=== PATIENT | male | born 1965 | race Two or more races ===

== ENCOUNTER 2024-03-05 16:18 | Inpatient (IN) | payer BC, MEDICAID ==
[~2024-03-05] VITALS: Ht 182.9 cm; Wt 124.0 kg
[2024-03-05 16:51] LABS: BASOPHILS % (AUTO) 0.5 % (0-1); EOSINOPHILS # (AUTO) 0.1 X10'3 (0-0.9); EOSINOPHILS % (AUTO) 1.1 % (0-6); HEMATOCRIT 32.7 % (42.0-52.0); HEMOGLOBIN 10.7 g/dl (14.0-17.9); LYMPHOCYTES # (AUTO) 0.9 X10'3 (1.1-4.8); LYMPHOCYTES % (AUTO) 14.1 % (21-51); MEAN CORPUSCULAR HEMOGLOBIN 31.1 PG (27.0-31.0); MEAN CORPUSCULAR HGB CONC 32.7 g/dL (33.0-36.5); MEAN PLATELET VOLUME 8.4 FL (7.4-10.4); MONOCYTES # (AUTO) 0.6 X10'3 (0-0.9); MONOCYTES % (AUTO) 10.3 % (2-12); NEUTROPHILS # (AUTO) 4.7 X10'3 (1.8-7.7); PLATELET COUNT 87 X10'3 (140-440); RED BLOOD COUNT 3.44 X10'6 (4.70-6.10); RED CELL DISTRIBUTION WIDTH 16.7 % (11.5-14.5); WHITE BLOOD COUNT 6.3 X10'3 (4.5-11.0)
[2024-03-05 17:02] LABS: ALBUMIN 2.3 G/DL (3.4-5.0); ALKALINE PHOSPHATASE 232 IU/L (46-116); ASPARTATE AMINO TRANSFERASE 58 U/L (10-37); BILIRUBIN,TOTAL 1.3 MG/DL (0.1-1.0); BLOOD UREA NITROGEN 31 MG/DL (7-18); BUN/CREATININE RATIO 28.2 (10.0-20.0); CHLORIDE 116 MMOL/L (99-107); POTASSIUM 4.7 MMOL/L (3.5-5.1); SODIUM 143 MMOL/L (135-145); eCRCL 78 ML/MIN; eGFR 68 ML/MIN
[2024-03-05 17:09] LABS: PRO BRAIN NATRIURETIC PEPTIDE 2032 PG/ML (0-125)
[2024-03-05 17:25] LABS: ALANINE AMINOTRANSFERASE 32 U/L (12-78); ALBUMIN/GLOBULIN RATIO 0.4 (1.1-1.5); ANION GAP 10 (8-16); CALCIUM 8.7 MG/DL (8.5-10.1); GLUCOSE 135 MG/DL (70-104); TOTAL CARBON DIOXIDE 16.7 MMOL/L (24-32); TOTAL PROTEIN 7.5 G/DL (6.4-8.2)
[2024-03-05] MEDS: normal saline 1000ml 1,000 ML IV SCH (17:54)
[2024-03-05 18:18] LABS: APTT 31 SECONDS (22-32); INR 1.2 INR; PROTHROMBIN TIME 12.2 SECONDS (9.0-12.0)
[2024-03-05] MEDS ORDERED: magnesium sulf-water 4G/100mL 100 ML IV PRN (20:35)
[2024-03-05] MEDS ORDERED: magnesium Cl slow-release 64mg tablet PO PRN (20:35)
[2024-03-05] MEDS ORDERED: magnesium sulf-water 2g/50mL 50 ML IV PRN (20:35)
[2024-03-05] MEDS ORDERED: potassium Cl 40MEQ/1/2NS 520ml 520 ML IV PRN (20:35)
[2024-03-05] MEDS ORDERED: potassium Cl 20 mEq SR tablet PO PRN ×2 (20:35)
[2024-03-05] MEDS ORDERED: acetaminophen 325mg tablet PO PRN (20:35)
[2024-03-05] MEDS ORDERED: ondansetron/PF 4mg/2ml inj IV PRN (20:35)
[2024-03-05] MEDS ORDERED: ipratropium/albuterol 3ml nebule NEB PRN (20:50)
[2024-03-05] MEDS ORDERED: normal saline 1000ml 1,000 ML IV SCH (20:55)
[2024-03-05] MEDS ORDERED: dextrose 50%-water 50ml dispensing syringe IV PRN ×2 (21:00)
[2024-03-05] MEDS ORDERED: glucagon, human recombinant 1mg kit SUBCUT PRN (21:00)
[2024-03-05] MEDS: INSULIN LISPRO 100 UNIT/ML INSULN.PEN MULTI-DOSE SQ SCH (21:00)
[2024-03-05] MEDS ORDERED: DEXTROSE 15 GM of carb/4 tabs (each vial/BOTTLE has 4 tablets) PO PRN ×2 (21:00)
[2024-03-05 21:16] VITALS: PULSE 95; RESP 18; O2SAT 98
[2024-03-05 21:37] LABS: % IRON SATURATION 22 % (11-46); IRON 67 UG/DL (53-167); TOTAL IRON BINDING CAPACITY 301 UG/DL (259-388)
[2024-03-05 21:44] LABS: HEMOGLOBIN A1C 5.2 % (4.5-6.2)
[2024-03-05 21:51] LABS: CHOL/HDL RATIO 3.4 (0.00-4.99); CHOLESTEROL 136 MG/DL (0-200); HDL CHOLESTEROL 40 MG/DL (35-60); LDL CHOLESTEROL 69 MG/DL (50-100); TRIGLYCERIDES 98 MG/DL (20-135)
[2024-03-05 22:41] VITALS: BP 143/68; PULSE 93; RESP 22; TEMP 97.2; O2SAT 97
[2024-03-05] MEDS ORDERED: GABA-1555 PO (23:30)
[2024-03-05] MEDS ORDERED: LISI40TA13 PO (23:30)
[2024-03-05] MEDS ORDERED: ATOR20TA66 PO (23:30)
[2024-03-05] MEDS ORDERED: ALLO100T PO (23:30)
[2024-03-05] MEDS ORDERED: AMLO5TAB16 PO (23:30)
[2024-03-05 23:56] VITALS: RESP 22; O2SAT 98
[2024-03-06] MEDS ORDERED: metroNIDAZOLE-Flagyl 500mg/NS 100 ML IV SCH
[2024-03-06 02:00] VITALS: BP 139/76; PULSE 98; RESP 25; TEMP 97.8; O2SAT 96
[2024-03-06] MEDS: CefTRIAXone/D5W-Rocephin 1gm 50 ML IV SCH (02:06)
[2024-03-06 06:26] LABS: BASOPHILS % (AUTO) 0.5 % (0-1); EOSINOPHILS # (AUTO) 0.2 X10'3 (0-0.9); EOSINOPHILS % (AUTO) 3.2 % (0-6); HEMATOCRIT 32.5 % (42.0-52.0); HEMOGLOBIN 10.4 g/dl (14.0-17.9); LYMPHOCYTES # (AUTO) 1.3 X10'3 (1.1-4.8); LYMPHOCYTES % (AUTO) 19.6 % (21-51); MEAN CORPUSCULAR HGB CONC 32.1 g/dL (33.0-36.5); MEAN CORPUSCULAR VOLUME 96.5 FL (78-98); MEAN PLATELET VOLUME 8.6 FL (7.4-10.4); MONOCYTES # (AUTO) 0.7 X10'3 (0-0.9); MONOCYTES % (AUTO) 10.1 % (2-12); NEUTROPHILS # (AUTO) 4.3 X10'3 (1.8-7.7); NEUTROPHILS % (AUTO) 66.6 % (42-75); PLATELET COUNT 84 X10'3 (140-440); RED BLOOD COUNT 3.36 X10'6 (4.70-6.10); RED CELL DISTRIBUTION WIDTH 17.3 % (11.5-14.5); WHITE BLOOD COUNT 6.5 X10'3 (4.5-11.0)
[2024-03-06] MEDS: heparin, porcine 5000 units/ml vial SQ SCH (06:32)
[2024-03-06 06:47] LABS: ALANINE AMINOTRANSFERASE 34 U/L (12-78); ALBUMIN 2.3 G/DL (3.4-5.0); ALBUMIN/GLOBULIN RATIO 0.4 (1.1-1.5); ALKALINE PHOSPHATASE 226 IU/L (46-116); ANION GAP 11 (8-16); ASPARTATE AMINO TRANSFERASE 67 U/L (10-37); BLOOD UREA NITROGEN 30 MG/DL (7-18); BUN/CREATININE RATIO 26.5 (10.0-20.0); CALCIUM 8.6 MG/DL (8.5-10.1); CHLORIDE 117 MMOL/L (99-107); CREATININE 1.13 MG/DL (0.60-1.10); ETHANOL < 10 MG/DL (<10); GLUCOSE 117 MG/DL (70-104); MAGNESIUM 1.8 MG/DL (1.5-2.4); PHOSPHORUS 3.4 MG/DL (2.3-4.5); POTASSIUM 4.6 MMOL/L (3.5-5.1); SODIUM 145 MMOL/L (135-145); TOTAL CARBON DIOXIDE 16.6 MMOL/L (24-32); TOTAL PROTEIN 7.5 G/DL (6.4-8.2); eCRCL 76 ML/MIN; eGFR 66 ML/MIN
[2024-03-06 07:00] VITALS: BP 136/47; PULSE 64; RESP 18; TEMP 96.7; O2SAT 97
[2024-03-06] MEDS: K and/or MAG REPLACEMENT MC SCH (07:01)
[2024-03-06] MEDS: pantoprazole 40 MG vial IV SCH (07:12)
[2024-03-06] MEDS ORDERED: docusate sod 100mg capsule PO SCH (08:00)
[2024-03-06 08:10] LABS: C DIFF SPECIMEN=DIARRHEA? ACCEPTABLE; C DIFFICILE TOXINS A&B NEGATIVE (Neg)
[2024-03-06 08:11] LABS: C DIFF ANTIGEN NEGATIVE (NEGATIVE)
[2024-03-06 08:26] LABS: BILIRUBIN,URINE SMALL (Neg); CLARITY,URINE SLIGHTLY CLOUDY (Clear); GLUCOSE, URINE NEGATIVE (Neg); KETONES,URINE TRACE mg/dl (Neg); LEUKOCYTE ESTERASE ,URINE NEGATIVE (Neg); NITRITES, URINE NEGATIVE (Neg); OCCULT BLOOD,URINE LARGE (Neg); PROTEIN,URINE >=300 mg/dl (Neg)
[2024-03-06 08:32] LABS: COLOR,URINE DARK YELLOW (Yellow); UA COLLECTION TYPE NON-SPECIFIED
[2024-03-06 08:35] LABS: AMORPHOUS URATES 3+; BACTERIA,URINE 2+ /HPF (Neg); FINE GRANULAR CAST 0-3 /LPF (NEGATIVE); MUCUS STRANDS FEW /LPF (Neg); SQUAMOUS EPITHELIAL CELL,UR FEW /LPF (FEW); TRANSITIONAL EPI CELLS,URINE FEW /HPF
[2024-03-06 08:50] LABS: URINE AMPHETAMINE SCREEN NEGATIVE (Neg); URINE BARBITUATE SCREEN NEGATIVE (Neg); URINE BENZODIAZEPINES SCREEN NEGATIVE (Neg); URINE CANNABINOID SCREEN NEGATIVE (Neg); URINE COCAINE SCREEN NEGATIVE (Neg); URINE METHADONE SCREEN NEGATIVE (Neg); URINE OPIATE SCREEN NEGATIVE (Neg); URINE PHENCYCLIDINE SCREEN NEGATIVE (Neg)
[2024-03-06] MEDS: lactulose 20gm/30ml cup PO SCH (10:15)
[2024-03-06] MEDS: sodium bicarbonate (8.4%) inj. 100 MEQ in dextrose 5%-water 1,000 ML IV SCH (10:42)
[2024-03-06 11:00] VITALS: BP 146/75; PULSE 85; RESP 15; TEMP 98; O2SAT 98
[2024-03-06] MEDS: loperamide 2mg capsule PO ONE (11:19)
[2024-03-06 18:00] VITALS: BP 146/79; PULSE 89; RESP 16; TEMP 98.2; O2SAT 94
[2024-03-06 22:00] VITALS: BP 152/75; PULSE 96; RESP 18; TEMP 97.3; O2SAT 97
[2024-03-07 02:00] VITALS: BP 157/75; PULSE 89; RESP 22; TEMP 97.9; O2SAT 96
[2024-03-07 06:00] VITALS: BP 159/77; PULSE 87; RESP 17; TEMP 97.9; O2SAT 97
[2024-03-07 07:39] LABS: ALANINE AMINOTRANSFERASE 25 U/L (12-78); ALBUMIN 2.2 G/DL (3.4-5.0); ALBUMIN/GLOBULIN RATIO 0.4 (1.1-1.5); ALKALINE PHOSPHATASE 212 IU/L (46-116); ANION GAP 7 (8-16); ASPARTATE AMINO TRANSFERASE 61 U/L (10-37); BILIRUBIN,TOTAL 0.9 MG/DL (0.1-1.0); BLOOD UREA NITROGEN 28 MG/DL (7-18); BUN/CREATININE RATIO 27.7 (10.0-20.0); CALCIUM 8.6 MG/DL (8.5-10.1); CHLORIDE 114 MMOL/L (99-107); CREATININE 1.01 MG/DL (0.60-1.10); GLUCOSE 134 MG/DL (70-104); MAGNESIUM 1.6 MG/DL (1.5-2.4); PHOSPHORUS 3.8 MG/DL (2.3-4.5); POTASSIUM 4.4 MMOL/L (3.5-5.1); SODIUM 141 MMOL/L (135-145); TOTAL PROTEIN 7.4 G/DL (6.4-8.2); eCRCL 85 ML/MIN; eGFR 75 ML/MIN
[2024-03-07 07:45] LABS: BASOPHILS % (AUTO) 0.5 % (0-1); EOSINOPHILS # (AUTO) 0.3 X10'3 (0-0.9); EOSINOPHILS % (AUTO) 4.8 % (0-6); HEMATOCRIT 30.4 % (42.0-52.0); HEMOGLOBIN 9.9 g/dl (14.0-17.9); LYMPHOCYTES # (AUTO) 1.3 X10'3 (1.1-4.8); LYMPHOCYTES % (AUTO) 22.7 % (21-51); MEAN CORPUSCULAR HEMOGLOBIN 30.9 PG (27.0-31.0); MEAN CORPUSCULAR HGB CONC 32.7 g/dL (33.0-36.5); MEAN CORPUSCULAR VOLUME 94.5 FL (78-98); MONOCYTES # (AUTO) 0.5 X10'3 (0-0.9); MONOCYTES % (AUTO) 8.9 % (2-12); NEUTROPHILS # (AUTO) 3.7 X10'3 (1.8-7.7); NEUTROPHILS % (AUTO) 63.1 % (42-75); PLATELET COUNT 79 X10'3 (140-440); RED BLOOD COUNT 3.21 X10'6 (4.70-6.10); WHITE BLOOD COUNT 5.8 X10'3 (4.5-11.0)
[2024-03-07 11:00] VITALS: BP 148/71; PULSE 86; RESP 19; TEMP 98.1; O2SAT 93
[2024-03-07] MEDS ORDERED: LACT10SO7 PO (12:37)
== END 2024-03-07 16:41 | disposition home or self-care (01) | DRG 441 ==
LOC: ER 16:19 → ED HOLD 20:41 → EDBEDREQ 21:39 → PCU 3S 22:38
PROVIDERS: ADMIT Internal Medicine Critical Care Medicine; ATTEND Family Medicine
DX: K72.00 Acute and subacute hepatic failure without coma (principal); G93.41 Metabolic encephalopathy; E87.20 Acidosis, unspecified; E44.0 Moderate protein-calorie malnutrition; K76.82 Hepatic encephalopathy; E11.9 Type 2 diabetes mellitus without complications; I10 Essential (primary) hypertension; K70.30 Alcoholic cirrhosis of liver without ascites; K72.10 Chronic hepatic failure without coma; I27.20 Pulmonary hypertension, unspecified; F10.20 Alcohol dependence, uncomplicated; D69.6 Thrombocytopenia, unspecified; D64.9 Anemia, unspecified; Z68.37 Body mass index [BMI] 37.0-37.9, adult
CPT/HCPCS: 36415; 70450; 71045; 74176; 80053; 80061; 80305; 80320; 81001; 82140; 82607; 82948; 83036; 83540; 83550; 83605; 83735; 83880; 84100; 84484; 85025; 85610; 85730; 87045; 87046; 87077; 87081; 87088; 87186; 87324; 87449; 93005; 93306; 94760; 97116; 97161; 97530; 99285; G0378; J0696; J2470; J3490; J7030; J7070